=== PATIENT | female | born 1950 | race Caucasian/White ===

== ENCOUNTER 2016-09-27 07:57 | Outpatient (CLI) | payer MEDICARE ==
[2016-09-27] MEDS ORDERED: XYLOCAINE TOPICAL 4% TP ONE ×2 (08:20→09:06)
== END 2016-09-27 07:58 | disposition home or self-care (01) ==
LOC: WOUND 07:57
PROVIDERS: ATTEND Surgery
DX: E11.622 Type 2 diabetes mellitus with other skin ulcer (principal); L97.821 Non-pressure chronic ulcer of other part of left lower leg limited to breakdown of skin; E11.22 Type 2 diabetes mellitus with diabetic chronic kidney disease; I12.0 Hypertensive chronic kidney disease with stage 5 chronic kidney disease or end stage renal disease; N18.6 End stage renal disease; Z99.2 Dependence on renal dialysis; M19.90 Unspecified osteoarthritis, unspecified site
CPT/HCPCS: 99215; G0463

== ENCOUNTER 2016-10-04 09:25 | Outpatient (CLI) | payer MEDICARE ==
[2016-10-04] MEDS ORDERED: XYLOCAINE TOPICAL 4% TP ONE ×2 (09:55→15:34)
== END 2016-10-04 09:26 | disposition home or self-care (01) ==
LOC: WOUND 09:25
PROVIDERS: ATTEND Surgery
DX: S80.212D Abrasion, left knee, subsequent encounter (principal); S40.812D Abrasion of left upper arm, subsequent encounter; E11.22 Type 2 diabetes mellitus with diabetic chronic kidney disease; I12.9 Hypertensive chronic kidney disease with stage 1 through stage 4 chronic kidney disease, or unspecified chronic kidney disease; N18.9 Chronic kidney disease, unspecified; M19.90 Unspecified osteoarthritis, unspecified site; Z99.2 Dependence on renal dialysis; X58.XXXD Exposure to other specified factors, subsequent encounter

== ENCOUNTER 2016-10-13 08:21 | Outpatient (CLI) | payer MEDICARE ==
[2016-10-13] MEDS ORDERED: XYLOCAINE TOPICAL 4% TP ONE (08:40)
== END 2016-10-13 08:22 | disposition home or self-care (01) ==
LOC: WOUND 08:21
PROVIDERS: ATTEND Nurse Practitioner
DX: S81.012D Laceration without foreign body, left knee, subsequent encounter (principal); E11.628 Type 2 diabetes mellitus with other skin complications; I10 Essential (primary) hypertension; M19.90 Unspecified osteoarthritis, unspecified site; Z98.49 Cataract extraction status, unspecified eye; Z99.2 Dependence on renal dialysis; X58.XXXD Exposure to other specified factors, subsequent encounter; Y92.89 Other specified places as the place of occurrence of the external cause; Y99.8 Other external cause status
CPT/HCPCS: 11042; G0463

== ENCOUNTER 2016-10-20 08:35 | Outpatient (CLI) | payer MEDICARE ==
[2016-10-20] MEDS ORDERED: XYLOCAINE TOPICAL 4% TP ONE (09:30)
== END 2016-10-20 08:36 | disposition home or self-care (01) ==
LOC: WOUND 08:35
PROVIDERS: ATTEND Nurse Practitioner
DX: S81.012D Laceration without foreign body, left knee, subsequent encounter (principal); E11.628 Type 2 diabetes mellitus with other skin complications; M19.90 Unspecified osteoarthritis, unspecified site; I10 Essential (primary) hypertension; Z98.49 Cataract extraction status, unspecified eye; Z99.2 Dependence on renal dialysis; X58.XXXD Exposure to other specified factors, subsequent encounter; Y92.89 Other specified places as the place of occurrence of the external cause; Y99.8 Other external cause status

== ENCOUNTER 2016-10-27 10:55 | Outpatient (CLI) | payer MEDICARE ==
[2016-10-27] MEDS ORDERED: XYLOCAINE TOPICAL 2% ONE (11:37)
[2016-10-27] MEDS ORDERED: XYLOCAINE TOPICAL 4% TP ONE (12:00)
== END 2016-10-27 10:56 | disposition home or self-care (01) ==
LOC: WOUND 10:55
PROVIDERS: ATTEND Nurse Practitioner
DX: S81.012D Laceration without foreign body, left knee, subsequent encounter (principal); E11.628 Type 2 diabetes mellitus with other skin complications; I10 Essential (primary) hypertension; M19.90 Unspecified osteoarthritis, unspecified site; Z99.2 Dependence on renal dialysis; Z98.49 Cataract extraction status, unspecified eye; X58.XXXD Exposure to other specified factors, subsequent encounter

== ENCOUNTER 2016-11-03 07:51 | Outpatient (CLI) | payer MEDICARE ==
[2016-11-03] MEDS ORDERED: XYLOCAINE TOPICAL 4% TP ONE (08:13)
== END 2016-11-03 07:52 | disposition home or self-care (01) ==
LOC: WOUND 07:51
PROVIDERS: ATTEND Nurse Practitioner
DX: S81.012D Laceration without foreign body, left knee, subsequent encounter (principal); I10 Essential (primary) hypertension; M19.90 Unspecified osteoarthritis, unspecified site; E11.628 Type 2 diabetes mellitus with other skin complications; Z99.2 Dependence on renal dialysis; W17.89XD Other fall from one level to another, subsequent encounter; Y92.89 Other specified places as the place of occurrence of the external cause; Y99.8 Other external cause status

== ENCOUNTER 2016-11-17 10:05 | Outpatient (CLI) | payer MEDICARE | END 2016-11-17 10:06 | disposition home or self-care (01) | LOC: WOUND 10:05 | PROVIDERS: ATTEND Surgery | DX: S81.012D Laceration without foreign body, left knee, subsequent encounter (principal); E11.9 Type 2 diabetes mellitus without complications; I10 Essential (primary) hypertension; M19.90 Unspecified osteoarthritis, unspecified site; Z99.2 Dependence on renal dialysis; Z98.49 Cataract extraction status, unspecified eye; X58.XXXD Exposure to other specified factors, subsequent encounter | CPT/HCPCS: 99213; G0463 ==